=== PATIENT | female | born 1990 | race Caucasian/White ===

== ENCOUNTER 2017-02-04 18:24 | Outpatient (CLI) | payer OTHER, MEDICAID ==
[2017-02-04 19:36] LABS: APPEARANCE,URINE SLIGHTLY-CLOUDY; BILIRUBIN,URINE NEGATIVE (NEGATIVE); GLUCOSE, URINE NEGATIVE (NEGATIVE); KETONES,URINE NEGATIVE (NEGATIVE); LEUKOCYTE ESTERASE,URINE SMALL (NEGATIVE); NITRITE,URINE NEGATIVE (NEGATIVE); PROTEIN,URINE NEGATIVE (NEGATIVE); URINE SPECIFIC GRAVITY 1.028
[2017-02-04 19:55] LABS: URINE BARBITURATES SCREEN NEGATIVE; URINE METHADONE SCREEN NEGATIVE; URINE OPIATES LOW NEGATIVE; URINE PHENCYCLIDINE SCREEN NEGATIVE
--- NOTE | 2017-02-04 20:01 | L&D Flow Sheet ---
LD Flowsheet Datetime Report Generated by CPN: 02/04/2017 20:00 Datetime: 02/04/2017 19:49 Communication Communication Comments: Pt. denies any constipation issues (Kathie Abimael, RN) Datetime: 02/04/2017 19:45 Communication Communication Comments: Dr. Nghia called and notified of pt. arrival, hx, complaint, urine results, fht, and toco tracing. New orders received to have pt. PO hydrate and watch pt. for awhile longer at this time. (Kathie Abimael, RN) Datetime: 02/04/2017 19:36 Monitor Interventions for UA: Witmer Adjusted (Kathie Abimael, RN) Contraction Comments: pt. denies feeling ctn's (Kathie Abimael, RN) Datetime: 02/04/2017 19:33 Vital Signs NBP Sys/Barbara/Mean (mmHg): 112 (QS system process) : 69 (QS system process) : 85 (QS system process) Pulse: 75 (QS system process) LaborFlag: Labor (QS system process) Datetime: 02/04/2017 19:31 Communication Communication Comments: RN at bedside at bedside adjuting u/s pt reports constant lower abd pain since 1400 rates pain 3/. She states that she was at work and went home early d/t pain (Kathie Abimael, RN) Datetime: 02/04/2017 19:30 Uterine Activity Monitor Mode: External (Kathie Abimael, RN) Frequency (min): one (Kathie Abimael, RN) Quality: Mild (Kathie Abimael, RN) Duration (sec): 50 (Kathie Abimael, RN) Duration Criteria: Less than Two 120 Second Contractions (Kathie Abimael, RN) Pattern: Normal: <= 5 Contractions in 10 Minutes (Kathie Abimael, RN) Resting Tone (Palpate): Relaxed (Kathie Abimael, RN) Contraction Comments: irrtitability noted, pt. denies feeling ctn's (Kathie Abimael, RN) Assessment A Monitor Mode: External US (Kathie Abimael, RN) FHR Baseline Rate : 125 (Kathie Abimael, RN) Variability: Moderate 6-25 bpm (Kathie Abimael, RN) Accelerations: 15X15 (Kathie Abimael, RN) Decelerations: None (Kathie Abimael, RN) Datetime: 02/04/2017 19:29 Pain Pain Scale: 3 (Vee Bernadine, RN) Pain Presence: Intermittent (Vee Bernadine, RN) Pain Type: Contraction (Vee Bernadine, RN) Pain Location: Abdomen (Vee Bernadine, RN) Pain Goal: 1 (Vee Bernadine, RN) Pain Coping: Talking Through Contractions (Vee Bernadine, RN) Vaginal Exam Membrane Status: Intact (Vee Bernadine, RN) Vaginal Bleeding: None (Vee Bernadine, RN) Maternal Assessment Level of Consciousness: Fully Conscious (Vee Bernadine, RN) DTR's/Clonus: DTRs 1+; No Clonus (Vee Bernadine, RN) Headache: Generalized (Vee Bernadine, RN) Breath Sounds, Left: Clear and Equal (Vee Bernadine, RN) Breath Sounds, Right: Clear and Equal (Vee Bernadine, RN) Nausea/Vomiting: Denies (Vee Bernadine, RN) RUQ Epigastric Pain: Denies (Vee Bernadine, RN) LaborFlag: Labor (QS system process) Datetime: 02/04/2017 19:28 Communication Communication Comments: eport received from H. Bernadine, RN adn care assumed at this time (Kathie Abimael, RN) Datetime: 02/04/2017 19:03 Vital Signs NBP Sys/Barbara/Mean (mmHg): 105 (QS system process) : 53 (QS system process) : 74 (QS system process) Pulse: 75 (QS system process) LaborFlag: Labor (QS system process) Datetime: 01/22/2017 18:27 LaborFlag: Labor (QS system process) Datetime: 01/22/2017 18:11 LaborFlag: Labor (QS system process) Datetime: 01/22/2017 17:58 LaborFlag: Labor (QS system process) Datetime: 01/22/2017 17:41 LaborFlag: Labor (QS system process) Datetime: 01/22/2017 17:26 LaborFlag: Labor (QS system process) Datetime: 01/22/2017 17:22 LaborFlag: Labor (QS system process)
[2017-02-04] MEDS: RINGERS SOLUTION,LACTATED 2,000 ML IV PRN ×2 (20:28→20:49)
[2017-02-04] MEDS ORDERED: CYCLOBENZAPRINE HCL 10 MG TABLET ONE (20:51)
[2017-02-04] MEDS ORDERED: CYCLOBENZAPRINE HCL 10 MG TABLET PO ONE (21:00)
[2017-02-04] MEDS ORDERED: PROCHLORPERAZINE EDISYLATE INJ 10 MG/2 ML VIAL IV ONE (22:16)
[2017-02-04] MEDS ORDERED: PROMETHAZINE HCL 25 MG TABLET ONE (22:29)
[2017-02-04] MEDS ORDERED: PROMETHAZINE HCL 25 MG TABLET PO ONE (22:45)
--- NOTE | 2017-02-04 22:52 | Non Stress Test Report ---
Non Stress Test Datetime Report Generated by CPN: 02/04/2017 22:52 DEMOGRAPHIC EGA NST: 33.6 INDICATION Indication for Study: Other Indication for Study (NST) Other: LC URINE RESULTS Urine Protein, NST: Negative Urine Ketones - NST: Negative Urine Glucose - NST: Negative Urine Blood - NST: Negative MONITORING Monitor Explained: Monitor Explained; Test Explained; Patient Verbalized Understanding Time on Monitor: 02/04/2017 18:55 Time off Monitor: 02/04/2017 22:14 NST Duration: 199 NST INTERVENTIONS NST Interventions: PO Hydration Physician Notified NST: Dr. Lane BABY A: [id number] BABY A Movement : Present Contraction Frequency : RARE FHR Baseline : 125 Accelerations : 15X15 Decelerations : None Variability : Moderate 6-25bpm NST Review: Meets Criteria for Reactive NST NST Review and Verified By : Hyacinth Peters RN NSRomeo Results: Reactive NST REPORT Report Trigger: Send Report
== END 2017-02-04 23:12 | disposition home or self-care (01) ==
LOC: LC 18:24
PROVIDERS: ATTEND Specialist
PROC: 4A1HXCZ Monitoring of Products of Conception, Cardiac Rate, External Approach (ICD-10-PCS; principal; 2017-02-04)
DX: Z34.93 Encounter for supervision of normal pregnancy, unspecified, third trimester (principal); Z36 Encounter for antenatal screening of mother; Z3A.33 33 weeks gestation of pregnancy
CPT/HCPCS: 59025; 81001; 80307; J0780

== ENCOUNTER 2017-02-20 10:47 | Outpatient (CLI) | payer OTHER, MEDICAID ==
[2017-02-20 11:28] LABS: APPEARANCE,URINE CLEAR; BILIRUBIN,URINE NEGATIVE (NEGATIVE); GLUCOSE, URINE NEGATIVE (NEGATIVE); KETONES,URINE NEGATIVE (NEGATIVE); LEUKOCYTE ESTERASE,URINE TRACE (NEGATIVE); NITRITE,URINE NEGATIVE (NEGATIVE); PROTEIN,URINE NEGATIVE (NEGATIVE); URINE SPECIFIC GRAVITY 1.011; UROBILINOGEN,URINE NEGATIVE mg/dL (<2.0)
[2017-02-20 11:28] LABS: AMNISURE (ROM) NEGATIVE (NEGATIVE)
[2017-02-20 11:50] LABS: URINE BARBITURATES SCREEN NEGATIVE; URINE METHADONE SCREEN NEGATIVE; URINE OPIATES LOW NEGATIVE; URINE PHENCYCLIDINE SCREEN NEGATIVE
--- NOTE | 2017-02-20 12:20 | Non Stress Test Report ---
Non Stress Test Datetime Report Generated by CPN: 02/20/2017 12:20 DEMOGRAPHIC EGA NST: 36.1 INDICATION Indication for Study: Ordered by Provider Indication for Study (NST) Other: lc for ?srom VITAL SIGNS Temperature - NST: 98.4 Pulse - NST: 81 RESP - NST: 16 NBPSYS NST: 118 NBPDIA NST: 65 MONITORING Monitor Explained: Monitor Explained; Test Explained; Patient Verbalized Understanding Time on Monitor: 02/20/2017 11:01 Time off Monitor: 02/20/2017 12:05 NST Duration: 64 NST INTERVENTIONS NST Interventions: PO Hydration; Reposition Patient BABY A: [id number] BABY A Movement : Present Contraction Frequency : occassional FHR Baseline : 125 Accelerations : 15X15 Decelerations : None Variability : Moderate 6-25bpm NST Review: Meets Criteria for Reactive NST NST Review and Verified By : Petar Geiger RNC NST Results: Reactive NST REPORT Report Trigger: Send Report
--- NOTE | 2017-02-20 15:40 | L&D Discharge Summary ---
OB Discharge Summary Datetime Report Generated by CPN: 02/20/2017 15:40 DISCHARGE DIAGNOSIS Diagnosis/Symptoms: Other Diagnoses/Symptoms Other: rule out rupturre membranes Treatment/Procedures Other: amnisure Gestation: 36.0 Number of Babies in Womb: 1 Parity: 2 DIET/ACTIVITY/RESTRICTIONS Diet: Regular Activity: Normal Activity TEACHING/INSTRUCTIONS/REFERRALS Instructions Given To: patient Instructions Understood: Patient Verbalized Understanding; Support Person Verbalized Understanding Referrals: None Educational Materials- Other: kick counts DISCHARGE INFORMATION Discharged AMA: No Discharge Date/Time: 02/20/2017 12:15 Discharged To: Home Discharge Provider Name: pj Accompanied By: Discharge Method: Ambulatory Condition: Stable FOLLOW UP INFORMATION Follow Up With: [facility] Follow Up On: As Scheduled Follow Up Phone Number: [facility] - Comments: Pt. D/C to home via wheelchair and in stable condition. Pt. states that her pain is manageable and she is feeling better. Pt. instructed to keep next appt. in office. Pt. denies any questions or concerns prior to d/c. All pt. belongings were taken with pt. at this time. Pt. off unit and care relinquished at this time
--- NOTE | 2017-02-21 22:46 | L&D Current Admission ---
Current Admit Datetime Report Generated by CPN: 02/21/2017 22:45 ADMISSION INFORMATION Chief Complaint: Contractions; Back Pain (02/04/2017 19:29:Vee Colindres RN) Chief Complaint: Pt complaining of abdominal tenderness and sharp stabbing pains, as well as dizziness and muffled hearing. Reports vomiting since evening of 01/21/17. (01/22/2017 17:22:Fide Viera RN)
--- NOTE | 2017-02-21 22:46 | L&D Discharge Summary ---
OB Discharge Summary Datetime Report Generated by CPN: 02/21/2017 22:45 DISCHARGE DIAGNOSIS Diagnosis/Symptoms: Other Diagnoses/Symptoms Other: rule out rupturre membranes Treatment/Procedures Other: amnisure Gestation: 36.1 Number of Babies in Womb: 1 Parity: 2 DIET/ACTIVITY/RESTRICTIONS Diet: Regular Activity: Normal Activity TEACHING/INSTRUCTIONS/REFERRALS Instructions Given To: patient Instructions Understood: Patient Verbalized Understanding; Support Person Verbalized Understanding Referrals: None Educational Materials- Other: kick counts DISCHARGE INFORMATION Discharged AMA: No Discharge Date/Time: 02/20/2017 12:15 Discharged To: Home Discharge Provider Name: pj Accompanied By: Discharge Method: Ambulatory Condition: Stable FOLLOW UP INFORMATION Follow Up With: [facility] Follow Up On: As Scheduled Follow Up Phone Number: [facility] - Comments: Pt. D/C to home via wheelchair and in stable condition. Pt. states that her pain is manageable and she is feeling better. Pt. instructed to keep next appt. in office. Pt. denies any questions or concerns prior to d/c. All pt. belongings were taken with pt. at this time. Pt. off unit and care relinquished at this time
--- NOTE | 2017-02-21 22:46 | Antepartum Discharge Summary ---
Antepartum DC Datetime Report Generated by CPN: 02/21/2017 22:45 DIET/ACTIVITY/RESTRICTIONS Diet: Regular (02/20/2017 12:15:Mercedez Bellavance, RNC) Activity: Normal Activity (02/20/2017 12:15:Mercedez Bellavance, RNC) TEACHING/INSTRUCTIONS/REFERRALS Instructions Given To: patient (02/20/2017 12:15:Mercedez Bellavance, RNC) Instructions Understood: Patient Verbalized Understanding; Support Person Verbalized Understanding (02/20/2017 12:15:Mercedez Bellavance, RNC) Referrals: None (02/20/2017 12:15:Mercedez Bellavance, RNC) Educational Materials- Other: kick counts (02/20/2017 12:15:Mercedez Bellavance, RNC) DISCHARGE INFORMATION Discharged AMA: No (02/20/2017 12:15:Mercedez Bellavance, RNC) Discharge Date/Time: 02/20/2017 12:15 (02/20/2017 12:15:Mercedez Bellavance, RNC) Discharged To: Home (02/20/2017 12:15:Mercedez Bellavance, RNC) Discharge Provider Name: neraulen (02/20/2017 12:15:Mercedez Bellavance, RNC) Accompanied By: (02/20/2017 12:15:Mercedez Bellavance, RNC) Discharge Method: Ambulatory (02/20/2017 12:15:Mercedez Bellavance, RNC) Condition: Stable (02/20/2017 12:15:Mercedez Bellavance, RNC) FOLLOW UP INFORMATION Follow Up With: [facility] (02/20/2017 12:15:LUCIA De La Fuente) Follow Up On: As Scheduled (02/20/2017 12:15:LUCIA De La Fuente) Follow Up Phone Number: [facility] - (02/20/2017 12:15:LUCIA De La Fuente)
--- NOTE | 2017-02-21 22:46 | L&D General Admission ---
General Admit Datetime Report Generated by CPN: 02/21/2017 22:45 INFORMATION Patient Age: 24 (12/28/2012 12:17:QS system process) EDC: 03/19/2017 00:00 (01/22/2017 17:23:Fide Viera RN) : 3 (01/22/2017 17:23:Fide Viera RN) Para: 2 (01/22/2017 17:23:Fide Viera RN) Term: 2 (01/22/2017 17:23:Fide Viera RN) : 0 (01/22/2017 17:23:Fide Viera RN) Spontaneous Abortions: 0 (01/22/2017 17:23:Fide Viera RN) Induced Abortions: 0 (01/22/2017 17:23:Fide Viera RN) Livin (01/22/2017 17:23:Fide Viera RN) Cesareans: 0 (01/22/2017 17:23:Fide Viera RN) VBACs: 0 (01/22/2017 17:23:Fide RICKY Viera) Ectopic: 0 (01/22/2017 17:23:Fidearnie Viera RN) Baby, Number in Womb: 1 (01/22/2017 17:23:Fidearnie Viera RN) CARE Primary Service Shop 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: [facility] (01/22/2017 17:23:Fide Viera RN) Month of 1st Visit: 08/2016 (01/22/2017 17:23:Fide Viera RN) Adequate Care: Yes (01/22/2017 17:23:Fide Viera RN) Prepregnancy Weight (lb): 134 (01/22/2017 17:23:Fide Viera RN) Prepregnancy Weight (kg): 60.9 (01/22/2017 17:23:QS system process) Height (in): 64 (02/20/2017 11:00:QS system process) Height (in): 64 (01/22/2017 17:38:QS system process) ALLERGIES Medication Allergy: Yes (01/22/2017 17:23:Fide Viera RN) Medication Allergies: amoxicillin trihydrate (01/22/2017); Sulfa (Sulfonamide Antibiotics) (01/22/2017); Potassium Clavulanate * (01/22/2017) (01/22/2017 17:38:QS system process) Medication Allergies: amoxicillin trihydrate (12/05/2014); Sulfa (Sulfonamide Antibiotics) (12/05/2014); Potassium Clavulanate * (12/05/2014) (01/22/2017 16:56:QS system process) Medication Allergies: Amoxicillin Trihydrate (12/05/2014); Sulfa (Sulfonamide Antibiotics) (12/05/2014); Potassium Clavulanate (12/05/2014) (12/28/2014 12:17:QS system process) Latex Allergy: No Latex Allergies (01/22/2017 17:23:Fide Viera RN) Food Allergies: N/A (01/22/2017 17:23:Fide Viera RN) Environmental Allergies: N/A (01/22/2017 17:23:Fide Viera RN) COMMUNICATION Primary Language: Andorran (01/22/2017 17:23:Fide Viera RN) Medical Tx Preferred Language: Andorran (01/22/2017 17:23:Fide Viera RN) Communication Barrier(s): None (01/22/2017 17:23:Fide Viera RN) DEMOGRAPHICS Address: [address] [place] [id number] (01/22/2017 16:56:QS system process) Address: [address] [place] [id number] (12/28/2014 12:17:QS system process) Zipcode: [id number] (01/22/2017 16:56:QS system process) Zipcode: [phone] (12/28/2014 12:17:QS system process) Home (12/28/2014 12:17:QS system process) Work (01/22/2017 16:56:QS system process) SSN: [id number] (12/28/2014 12:17:QS system process) Next of Kin Name: KAYLEY AMBRIZ (12/28/2014 12:17:QS system process) Next of Kin (12/28/2014 12:17:QS system process) Next of Kin Relationship: SPO (12/28/2014 12:17:QS system process) Date of : 1990 (12/28/2014 12:17:QS system process) Marital Status: (12/28/2014 12:17:QS system process) Sex: Female (12/28/2014 12:17:QS system process) Race: (12/28/2014 12:17:QS system process) Ethnicity: Non- or (12/28/2014 12:17:QS system process) Synagogue: Hinduism (12/28/2014 12:17:QS system process) DRUG AND ALCOHOL USE Alcohol: No (01/22/2017 17:23:Fide Vitrano, RN) Cigarettes: Never Smoker. 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: [facility] (01/22/2017 17:23:Fide Viera RN) Feeding Preference: Breast (01/22/2017 17:23:Fide Viera RN) Benefit of Breast Feed Discussed: Yes (01/22/2017 17:23:Fide Viera RN) Circumcision: N/A (01/22/2017 17:23:Fide Viera RN) Classes Attended: No (01/22/2017 17:23:Fide Viera RN) Tubal Ligation: No (01/22/2017 17:23:Fide Viera RN) Tubal Authorization Signed: N/A (01/22/2017 17:23:Fide Viera RN) Consent: N/A (01/22/2017 17:23:Fide Viera RN) Consent Signed: N/A (01/22/2017 17:23:Fide Viera RN) Pain Management Plans: Epidural (01/22/2017 17:23:Fide Viera RN) Plans for Labor and Delivery: None (01/22/2017 17:23:Fide Viear RN) Support Person: Aiden (01/22/2017 17:23:Fide Viera RN) Support Person Relationship: (01/22/2017 17:23:Fide Viera RN) Cultural/Spritual Practice: No (01/22/2017 17:23:Fide Viera RN) Spir/Cult Dietary Needs: No (01/22/2017 17:23:Fide Viera RN) LIVING SITUATION/DISCHARGE PLAN Living Arrangements: House (01/22/2017 17:23:Fide Viera RN) Adequate Access to:: Electric; Heat; Refrigeration; Plumbing/Running water; Phone; Transportation (01/22/2017 17:23:Fide Viera RN) WIC Program: No (01/22/2017 17:23:Fide Viera RN) Discharge Architectural Renderer Person: (01/22/2017 17:23:Fide Viera RN) Person to Help after Discharge: (01/22/2017 17:23:Fide Viera RN) Currently Using Commun Resources: Yes (01/22/2017 17:23:Fide Viera RN) Specify Current Resource Used: Medicaid (01/22/2017 17:23:Fide Viera RN) Car Seat for Discharge: Yes (01/22/2017 17:23:Fide Viera RN) Adoption Requested: No (01/22/2017 17:23:Fide Viera RN) Pt Contact w/infant Post : N/A (01/22/2017 17:23:Fide Viera RN) LABS Blood Type: O Positive (01/22/2017 17:23:Fide Viera RN) Antibody Screen: Negative (01/22/2017 17:23:Fide Viera RN) Rho(G) this : Not Applicable (01/22/2017 17:23:Fide Viera RN) Hemoglobin: 11.1 L (01/22/2017 18:10:QS system process) Hemoglobin: 12.1 (08/28/2016 12:21:QS system process) Hemoglobin: 12.9 (07/12/2016 17:20:QS system process) Hemoglobin: 13.1 (07/11/2016 14:50:QS system process) Hematocrit: 32.6 L (01/22/2017 18:10:QS system process) Hematocrit: 34.9 L (08/28/2016 12:21:QS system process) Hematocrit: 37.7 (07/12/2016 17:20:QS system process) Hematocrit: 38.5 (07/11/2016 14:50:QS system process) MCV: 91 (01/22/2017 18:10:QS system process) MCV: 86 (08/28/2016 12:21:QS system process) MCV: 86 (07/12/2016 17:20:QS system process) MCV: 86 (07/11/2016 14:50:QS system process) RPR/VDRL: Nonreactive (01/22/2017 17:23:Fide Viera RN) HIV Exposure Test: Negative (01/22/2017 17:23:Fide Viera RN) Hepatitis B: Negative (01/22/2017 17:23:Fide Viera RN) Rubella: Immune (01/22/2017 17:23:Fide Viera RN) HgB A1c: 5.0 (07/11/2016 14:50:QS system process) OB/PREVIOUS HISTORY History of Previous : No (01/22/2017 17:23:Fide Viera RN) History of Gestational Diabetes: No (01/22/2017 17:23:Fide Viera RN) History of PIH: No (01/22/2017 17:23:Fide Viera RN) History of Incompetent Cervix: No (01/22/2017 17:23:Fide Viera RN) History of Placenta Previa/Abrup: No (01/22/2017 17:23:Fide Viera RN) History of Macrosomia: No (01/22/2017 17:23:Fide Viera RN) History of IUGR: No (01/22/2017 17:23:Fide Viera RN) History of Hemorrhage: No (01/22/2017 17:23:Fide Viera RN) History of Loss/Stillborn: No (01/22/2017 17:23:Fide Viera RN) History of : No (01/22/2017 17:23:Fide Viera RN) History of D (Rh) Sensitization: No (01/22/2017 17:23:Fide Viera RN) History Recurrent Loss/Stillborn: No (01/22/2017 17:23:Fide Viera RN) History Depression/PP Depression: No (01/22/2017 17:23:Fide Viera RN) History of Uterine Anomaly/JOSE: No (01/22/2017 17:23:Fide Viera RN) History of Infertility: No (01/22/2017 17:23:Fide Viera RN) History of ART Treatment: No (01/22/2017 17:23:Fide Viera RN) History of JOSE: No (01/22/2017 17:23:Fide Viera RN) Comments Obstetrical History: G1: 2012 41.2 baby boy, 8 lb 8 oz G2: 2014 40.1 baby boy G3: Current (01/22/2017 17:23:Fide Viera RN) MEDICAL HISTORY Med Hx Diabetes: Yes (01/22/2017 17:23:Fide Viera RN) Med Hx Hypertension: No (01/22/2017 17:23:Fide Viera RN) Med Hx Heart Disease: No (01/22/2017 17:23:Fide Viera RN) Med Hx Autoimmune Disorder: No (01/22/2017 17:23:Fide Viera RN) Med Hx Kidney Disease/UTI: No (01/22/2017 17:23:Fide Viera RN) Med Hx Neurologic/Epilepsy: No (01/22/2017 17:23:Fide Viera RN) Med Hx Psychiatric Disorders: No (01/22/2017 17:23:Fide Viera RN) Med Hx Hepatitis/Liver Disease: No (01/22/2017 17:23:Fide Viera RN) Med Hx Varicosities/Phlebitis: No (01/22/2017 17:23:Fide Viera RN) Med Hx Thyroid Dysfunction: No (01/22/2017 17:23:Fide Viera RN) Med Hx Trauma/Violence: No (01/22/2017 17:23:Fide Viera RN) Med Hx Blood Transfusion: No (01/22/2017 17:23:Fide Viera RN) Med Hx Pulmonary (Asthma,TB): No (01/22/2017 17:23:Fide Viera RN) Med Hx Breast: No (01/22/2017 17:23:Fide Viera RN) Med Hx CAREER SERVICES DIRECTOR Surgery: No (01/22/2017 17:23:Fide Viera RN) Med Hx Hospitalization/Surgery: Yes (01/22/2017 17:23:Fide Viera RN) Med Hx Anesthetic Complications: No (01/22/2017 17:23:Fide Viera RN) Med Hx Abnormal Pap Smear: No (01/22/2017 17:23:Fide Viera RN) Other Medical Diseases: No (01/22/2017 17:23:Fide Viera RN) Med Hx Significant Family Hx: No (01/22/2017 17:23:Fide Viera RN) Details of Med/Surg Hx: Diabetes: Hypoglycemia Surgeries: Bunion removed l foot, borders removed both feet (01/22/2017 17:23:Fide Viera RN) INFECTIOUS HISTORY Inf Hx Gonorrhea: No (01/22/2017 17:23:Fide Viera RN) Inf Hx Chlamydia: No (01/22/2017 17:23:Fide Viera RN) Inf Hx Syphilis: No (01/22/2017 17:23:Fide Viera RN) Inf Hx HIV/AIDS: No (01/22/2017 17:23:Fide Viera RN) Inf Hx Human Papilloma Virus: No (01/22/2017 17:23:Fide Viera RN) Inf Hx Pt/Partner Genital Herpes: No (01/22/2017 17:23:Fide Viera RN) Inf Hx Tuberculosis/Exposure: No (01/22/2017 17:23:Fide Viera RN) Inf Hx Hepatitis B,C: No (01/22/2017 17:23:Fide Viera RN) Inf Hx Rash or Viral Illness: No (01/22/2017 17:23:Fide Vitrano, RN) GENETIC HISTORY Gen Hx Age >=35 at PRADEEP: No (01/22/2017 17:23:Fide Viera RN) Gen Hx Thalassemia: No (01/22/2017 17:23:Fide Viera RN) Gen Hx Congenital Heart Defect: No (01/22/2017 17:23:Fide Viera RN) Gen Hx Neural Tube Defect: No (01/22/2017 17:23:Fide Viera RN) Gen Hx Down's Syndrome: No (01/22/2017 17:23:Fide Viera RN) Gen Hx Ralph-Sachs: No (01/22/2017 17:23:Fide Viera RN) Gen Hx Brenda: No (01/22/2017 17:23:Fide Viera RN) Gen Hx Familial Dysautonomia: No (01/22/2017 17:23:Fide Viera RN) Gen Hx Sickle Cell Disease/Trait: No (01/22/2017 17:23:Fide Viera RN) Gen Hx Hemophilia/Blood Disorder: No (01/22/2017 17:23:Fide Viera RN) Gen Hx Muscular Dystrophy: No (01/22/2017 17:23:Fide Viera RN) Gen Hx Cystic Fibrosis: No (01/22/2017 17:23:Fide Viera RN) Gen Hx Huntingtons Chorea: No (01/22/2017 17:23:Fide Viera RN) Gen Hx Mental Retardation/Autism: No (01/22/2017 17:23:Fide Viera RN) Gen Hx Tested for Fragile X: No (01/22/2017 17:23:Fide Viera RN) Gen Hx Other Inher/Chromosomal: No (01/22/2017 17:23:Fide Viera RN) Gen Hx Maternal Metabolic DO: No (01/22/2017 17:23:Fide Viera RN) Gen Hx Pt Father or FOB Defect: No (01/22/2017 17:23:Fide Viera RN) Gen Hx Other Genetic History: No (01/22/2017 17:23:Fide Viera RN) Gen Hx Drugs/Meds since LMP: No (01/22/2017 17:23:Fide Viera RN)
--- NOTE | 2017-02-22 04:46 | Antepartum Discharge Summary ---
Antepartum DC Datetime Report Generated by CPN: 02/22/2017 04:45 DIET/ACTIVITY/RESTRICTIONS Diet: Regular (02/20/2017 12:15:Mercedez Bellavance, RNC) Activity: Normal Activity (02/20/2017 12:15:Mercedez Bellavance, RNC) TEACHING/INSTRUCTIONS/REFERRALS Instructions Given To: patient (02/20/2017 12:15:Mercedez Bellavance, RNC) Instructions Understood: Patient Verbalized Understanding; Support Person Verbalized Understanding (02/20/2017 12:15:Mercedez Bellavance, RNC) Referrals: None (02/20/2017 12:15:Mercedez Bellavance, RNC) Educational Materials- Other: kick counts (02/20/2017 12:15:Mercedez Bellavance, RNC) DISCHARGE INFORMATION Discharged AMA: No (02/20/2017 12:15:Mercedez Bellavance, RNC) Discharge Date/Time: 02/20/2017 12:15 (02/20/2017 12:15:Mercedez Bellavance, RNC) Discharged To: Home (02/20/2017 12:15:Mercedez Bellavance, RNC) Discharge Provider Name: neraulen (02/20/2017 12:15:Mercedez Bellavance, RNC) Accompanied By: (02/20/2017 12:15:Mercedez Bellavance, RNC) Discharge Method: Ambulatory (02/20/2017 12:15:Mercedez Bellavance, RNC) Condition: Stable (02/20/2017 12:15:Mercedez Bellavance, RNC) FOLLOW UP INFORMATION Follow Up With: [facility] (02/20/2017 12:15:LUCIA De La Fuente) Follow Up On: As Scheduled (02/20/2017 12:15:LUCIA De La Fuente) Follow Up Phone Number: [facility] - (02/20/2017 12:15:LUCIA De La Fuente)
--- NOTE | 2017-02-22 04:46 | L&D Current Admission ---
Current Admit Datetime Report Generated by CPN: 02/22/2017 04:45 ADMISSION INFORMATION Chief Complaint: Contractions; Back Pain (02/04/2017 19:29:Vee Colindres RN) Chief Complaint: Pt complaining of abdominal tenderness and sharp stabbing pains, as well as dizziness and muffled hearing. Reports vomiting since evening of 01/21/17. (01/22/2017 17:22:Fide Viera RN)
--- NOTE | 2017-02-22 04:46 | L&D Discharge Summary ---
OB Discharge Summary Datetime Report Generated by CPN: 02/22/2017 04:45 DISCHARGE DIAGNOSIS Diagnosis/Symptoms: Other Diagnoses/Symptoms Other: rule out rupturre membranes Treatment/Procedures Other: amnisure Gestation: 36.1 Number of Babies in Womb: 1 Parity: 2 DIET/ACTIVITY/RESTRICTIONS Diet: Regular Activity: Normal Activity TEACHING/INSTRUCTIONS/REFERRALS Instructions Given To: patient Instructions Understood: Patient Verbalized Understanding; Support Person Verbalized Understanding Referrals: None Educational Materials- Other: kick counts DISCHARGE INFORMATION Discharged AMA: No Discharge Date/Time: 02/20/2017 12:15 Discharged To: Home Discharge Provider Name: pj Accompanied By: Discharge Method: Ambulatory Condition: Stable FOLLOW UP INFORMATION Follow Up With: [facility] Follow Up On: As Scheduled Follow Up Phone Number: [facility] - Comments: Pt. D/C to home via wheelchair and in stable condition. Pt. states that her pain is manageable and she is feeling better. Pt. instructed to keep next appt. in office. Pt. denies any questions or concerns prior to d/c. All pt. belongings were taken with pt. at this time. Pt. off unit and care relinquished at this time
--- NOTE | 2017-02-22 04:46 | L&D Admission Assessment ---
LD ADM ASMT Datetime Report Generated by CPN: 02/22/2017 04:45 PATIENT ASSESSMENT Assessment Type: Triage (02/20/2017 11:19:Cintiadonavan Mccabe, RN) WEIGHT Weight (lb): 161 (02/20/2017 11:00:QS system process) Weight (kg): 73.2 (02/20/2017 11:00:QS system process) Total Wt Gain (lb): 27 (02/20/2017 11:00:QS system process) Wt Gain (kg): 12.1 (02/20/2017 11:00:QS system process) BMI: 27.6 (02/20/2017 11:00:QS system process) PAIN Pain Comments: patient states that she is uncomfortable when baby moves (02/20/2017 11:03:Cintia Eliot, RN) CONTRACTIONS Frequency (min): 2-3 (02/20/2017 12:00:Mercedez Bellavance, RNC) Frequency (min): 0 (02/20/2017 11:03:Cintia Eliot, RN) Duration (sec): 40-50 (02/20/2017 12:00:Mercedez Bellavance, RNC) Quality: Mild (02/20/2017 12:00:Mercedez Bellavance, RNC) Pattern: Normal: <= 5 Contractions in 10 Minutes (02/20/2017 12:00:Mercedez Bellavance, RNC) Resting Tone Rozel: Relaxed (02/20/2017 12:00:Mercedez Bellavance, RNC) Resting Tone Rozel: Relaxed (02/20/2017 11:03:Cintia Mccabe RN) VAGINAL EXAM Dilatation (cm): 0.0 (02/20/2017 12:00:Mercedez Bellavance, RNC) Effacement (%): 0 (02/20/2017 12:00:Mercedez Bellavance, RNC) Station: -2 (02/20/2017 12:00:Mercedez Bellavance, RNC) Membranes Status: Intact (02/20/2017 12:00:Mercedez Bellavance, RNC) NEURO Level of Consciousness: Fully Conscious (02/20/2017 11:19:Cintia Mccabe RN) DTR's/Clonus: DTRs 2+; No Clonus (02/20/2017 11:19:Cintia Mccabe RN) Headache: Denies (02/20/2017 11:19:Cintia Mccabe RN) Dizziness: No (02/20/2017 11:19:Cintia Mccabe RN) Blurred Vision: No (02/20/2017 11:19:Cintia Mccabe RN) Extremity Numbness/Tingling : None (02/20/2017 11:19:Cintia Eliot, RN) Extremity Movement: Full Range of Motion (02/20/2017 11:19:Cintia Eliot, RN) CARDIOVASCULAR Nailbeds: [place] (02/20/2017 11:19:Cintia Eliot, RN) Capillary Refill: Less than 3 Seconds (02/20/2017 11:19:Cintia Eliot, RN) Facial Edema: None (02/20/2017 11:19:Cintia Eliot, RN) Froylan's Sign Left Leg: Negative (02/20/2017 11:19:Cintia Eliot, RN) Froylan's Sign Right Leg: Negative (02/20/2017 11:19:Cintia Eliot, RN) RESPIRATORY Respiratory Effort: Unlabored; Regular Rhythm; Equal Expansion (02/20/2017 11:19:Cintia Eliot, RN) Breath Sounds, Left: Clear and Equal (02/20/2017 11:19:Cintia Eliot, RN) Breath Sounds, Right: Clear and Equal (02/20/2017 11:19:Cintia Eliot, RN) Cough Productivity: None (02/20/2017 11:19:Cintia Eliot, RN) GASTROINTESTINAL Nausea/Vomiting: Denies (02/20/2017 11:19:Cintia Eliot, RN) Bowel Sounds: Normoactive; All Quadrants (02/20/2017 11:19:Cintia Eliot, RN) RUQ Epigastric Pain: Denies (02/20/2017 11:19:Cintia Eliot, RN) GENITOURINARY Bladder: Nondistended (02/20/2017 11:19:Cintia Eliot, RN) Frequency of Urination: No (02/20/2017 11:19:Cintia Eliot, RN) Urination Burning: No (02/20/2017 11:19:Cintia Eliot, RN) CVA Tenderness: No (02/20/2017 11:19:Cintia Eliot, RN) Vaginal Discharge Color: N/A (02/20/2017 11:19:Cintia Eliot, RN) INTEGUMENTARY Skin Color: Normal for Race (02/20/2017 11:19:Cintia Mccabe, RICKY) Skin Temperature: Warm (02/20/2017 11:19:Cintia Mccabe, RICKY) Skin Moisture: Dry (02/20/2017 11:19:Cintia Mccabe, RN) GILLIAN SKIN ASSESSMENT Gillian Scale Sensory Perception: No Impairment- Responds to verbal commands. Has no sensory deficit which would limit ability to feel or voice pain or discomfort (02/20/2017 11:19:Cintia Mccabe RN) Gillian Scale Moisture: Rarely Moist- Skin is usually dry. Linen only requires changing at routine intervals (02/20/2017 11:19:Cintia Mccabe RN) Gillian Scale Activity: Walks Frequently- Walks outside the room at least twice a day and inside room at least every 2 hours during the day. (02/20/2017 11:19:Cintia Mccabe RN) Gillian Scale Mobility: No Limitations- Makes major and frequent changes in position without assistance (02/20/2017 11:19:Cintia Mccabe RN) Gillian Scale Nutrition: Excellent- Eats most of every meal. Never refuses a meal. Usually eats a total of 4 or more servings of meat and dairy products. Occasionally eats between meals. Does not require supplementation (02/20/2017 11:19:Cintia Mccabe RN) Gillian Scale Friction and Shear: No Apparent Problem- Moves in bed and in chair independently and has sufficient muscle strength to lift up completely during move. Maintains good position in bed or chair at all times (02/20/2017 11:19:Cintia Mccabe RN) Gillian Scale Total: 23 (02/20/2017 11:19:QS system process) Gillian Scale Risk: No Risk of Pressure Ulcer Noted at this Time (02/20/2017 11:19:QS system process) SAFETY Call Webb Within Reach: Yes (02/20/2017 11:19:Cintia Mccabe RN) Side Rails Up: Yes (02/20/2017 11:19:Cintia Mccabe RN) Bed Wheels Locked: Yes (02/20/2017 11:19:Cintia Mccabe RN) Arm Bands Present: Yes (02/20/2017 11:19:Cintia Mccabe RN) FALL SCREEN Fall Risk History of Falling: (0) No (02/20/2017 11:19:Cintia Mccabe RN) Fall Risk Secondary Diagnosis: (0) No (02/20/2017 11:19:Cintia Mccabe RN) Fall Risk Ambulatory Aid: (0) None/Bedrest/Wheelchair/Nurse Assist (02/20/2017 11:19:Cintia Mccabe RN) Fall Risk IV Therapy: (0) No (02/20/2017 11:19:Cintia Mccabe RN) Fall Risk Gait: (0) Normal/Bedrest/Immobile (02/20/2017 11:19:Cintia Mccabe RN) Fall Risk Mental Status: (0) Oriented to Own Ability (02/20/2017 11:19:Cintia Mccabe RN) Fall Risk Score: 0 (02/20/2017 11:19:QS system process) Fall Risk Score Definition: No Risk: No action required (02/20/2017 11:19:QS system process) BABY A FHR Baseline Rate (bpm) Baby A: 125 (02/20/2017 12:00:LUCIA De La Fuente) FHR Baseline Rate (bpm) Baby A: 125 (02/20/2017 11:03:Cintia Mccabe RN) Variability Baby A: Moderate 6-25 bpm (02/20/2017 12:00:LUCIA De La Fuente) Variability Baby A: Moderate 6-25 bpm (02/20/2017 11:03:Cintia Mccabe RN) Accelerations Baby A: 15X15 (02/20/2017 12:00:LUCIA De La Fuente) Accelerations Baby A: 15X15 (02/20/2017 11:03:Cintia Mccabe RN) Decelerations Baby A: None (02/20/2017 12:00:LUCIA De La Fuente) Decelerations Baby A: None (02/20/2017 11:03:Cintia Mccabe RN)
--- NOTE | 2017-02-22 04:46 | L&D General Admission ---
General Admit Datetime Report Generated by CPN: 02/22/2017 04:45 INFORMATION Patient Age: 24 (12/28/2014 12:17:QS system process) EDC: 03/19/2017 00:00 (01/22/2017 17:23:Fide Viera RN) : 3 (01/22/2017 17:23:Fide Viera RN) Para: 2 (01/22/2017 17:23:Fide Viera RN) Term: 2 (01/22/2017 17:23:Fide Viera RN) : 0 (01/22/2017 17:23:Fide Viera RN) Spontaneous Abortions: 0 (01/22/2017 17:23:Fide Viera RN) Induced Abortions: 0 (01/22/2017 17:23:Fide Viera RN) Livin (01/22/2017 17:23:Fide Viera RN) Cesareans: 0 (01/22/2017 17:23:Fide Viera RN) VBACs: 0 (01/22/2017 17:23:Fide RICKY Viera) Ectopic: 0 (01/22/2017 17:23:Fidearnie Viera RN) Baby, Number in Womb: 1 (01/22/2017 17:23:Fidearnie Viera RN) CARE [facility] Prof[facility] (01/22/2017 17:23:Fide Viera RN) Month of 1st Visit: 08/2016 (01/22/2017 17:23:Fide Viera RN) Adequate Care: Yes (01/22/2017 17:23:Fide Viera RN) Prepregnancy Weight (lb): 134 (01/22/2017 17:23:Fide Viera RN) Prepregnancy Weight (kg): 60.9 (01/22/2017 17:23:QS system process) Height (in): 64 (02/20/2017 11:00:QS system process) Height (in): 64 (01/22/2017 17:38:QS system process) ALLERGIES Medication Allergy: Yes (01/22/2017 17:23:Fide Viera RN) Medication Allergies: amoxicillin trihydrate (01/22/2017); Sulfa (Sulfonamide Antibiotics) (01/22/2017); Potassium Clavulanate * (01/22/2017) (01/22/2017 17:38:QS system process) Medication Allergies: amoxicillin trihydrate (12/05/2014); Sulfa (Sulfonamide Antibiotics) (12/05/2014); Potassium Clavulanate * (12/05/2014) (01/22/2017 16:56:QS system process) Medication Allergies: Amoxicillin Trihydrate (12/05/2014); Sulfa (Sulfonamide Antibiotics) (12/05/2014); Potassium Clavulanate (12/05/2014) (12/28/2014 12:17:QS system process) Latex Allergy: No Latex Allergies (01/22/2017 17:23:Fide Viera RN) Food Allergies: N/A (01/22/2017 17:23:Fide Viera RN) Environmental Allergies: N/A (01/22/2017 17:23:Fide Viera RN) COMMUNICATION Primary Language: Georgian (01/22/2017 17:23:Fide Viera RN) Medical Tx Preferred Language: Georgian (01/22/2017 17:23:Fide Viera RN) Communication Barrier(s): None (01/22/2017 17:23:Fide Viera RN) DEMOGRAPHICS Address: [address] [place] [id number] (01/22/2017 16:56:QS system process) Address: [address] [place] [id number] (12/28/2014 12:17:QS system process) Zipcode: [id number] (01/22/2017 16:56:QS system process) Zipcode: [id number] (12/28/2014 12:17:QS system process) Home (12/28/2014 12:17:QS system process) Work (01/22/2017 16:56:QS system process) SSN: [id number] (12/28/2014 12:17:QS system process) Next of Kin Name: KAYLEY AMBRIZ (12/28/2014 12:17:QS system process) Next of Kin (12/28/2014 12:17:QS system process) Next of Kin Relationship: SPO (12/28/2014 12:17:QS system process) Date of : 1990 (12/28/2014 12:17:QS system process) Marital Status: (12/28/2014 12:17:QS system process) Sex: Female (12/28/2014 12:17:QS system process) Race: (12/28/2014 12:17:QS system process) Ethnicity: Non- or (12/28/2014 12:17:QS system process) Buddhist: Orthodoxy (12/28/2014 12:17:QS system process) DRUG AND ALCOHOL USE Alcohol: No (01/22/2017 17:23:Fide Vitrano, RN) Cigarettes: Never Smoker. [id number] (01/22/2017 17:23:Fide Vitrano, RN) Marijuana: No (01/22/2017 17:23:Fide Vitrano, RN) Cocaine: No (01/22/2017 17:23:Fide Vitrano, RN) Other Illicit Drugs: No (01/22/2017 17:23:Fide Vitrano, RN) VACCINE HISTORY Influenza Vaccine: No (01/22/2017 17:23:Fide Vitrano, RN) Pneumococcal Vaccine: No (01/22/2017 17:23:Fide Vitrano, RN) Tetanus Vaccine: Yes (01/22/2017 17:23:Fide Vitrano, RN) Tdap Vaccine: Yes (01/22/2017 17:23:Fide Vitrano, RN) Hepatitis B Vaccine: Yes (01/22/2017 17:23:Fide Vitrano, RN) Mailing Clerk: [facility] (01/22/2017 17:23:Fide Viera RN) Feeding Preference: Breast (01/22/2017 17:23:Fide Viera RN) Benefit of Breast Feed Discussed: Yes (01/22/2017 17:23:Fide Viera RN) Circumcision: N/A (01/22/2017 17:23:Fide Viera RN) Classes Attended: No (01/22/2017 17:23:Fide Viera RN) Tubal Ligation: No (01/22/2017 17:23:Fide Viera RN) Tubal Authorization Signed: N/A (01/22/2017 17:23:Fide Viera RN) Consent: N/A (01/22/2017 17:23:Fide Viera RN) Consent Signed: N/A (01/22/2017 17:23:Fide Viera RN) Pain Management Plans: Epidural (01/22/2017 17:23:Fide Viera RN) Plans for Labor and Delivery: None (01/22/2017 17:23:Fide Viera RN) Support Person: Aiden (01/22/2017 17:23:Fide Viera RN) Support Person Relationship: (01/22/2017 17:23:Fide Viera RN) Cultural/Spritual Practice: No (01/22/2017 17:23:Fide Viera RN) Spir/Cult Dietary Needs: No (01/22/2017 17:23:Fide Viera RN) LIVING SITUATION/DISCHARGE PLAN Living Arrangements: House (01/22/2017 17:23:Fide Viera RN) Adequate Access to:: Electric; Heat; Refrigeration; Plumbing/Running water; Phone; Transportation (01/22/2017 17:23:Fide Viera RN) WIC Program: No (01/22/2017 17:23:Fide Viera RN) Discharge Manager Financial Planning Person: (01/22/2017 17:23:Fide Viera RN) Person to Help after Discharge: (01/22/2017 17:23:Fide Viera RN) Currently Using Commun Resources: Yes (01/22/2017 17:23:Fide Viera RN) Specify Current Resource Used: Medicaid (01/22/2017 17:23:Fide Viera RN) Car Seat for Discharge: Yes (01/22/2017 17:23:Fide Viera RN) Adoption Requested: No (01/22/2017 17:23:Fide Viera RN) Pt Contact w/infant Post : N/A (01/22/2017 17:23:Fide Viera RN) LABS Blood Type: O Positive (01/22/2017 17:23:Fide Viera RN) Antibody Screen: Negative (01/22/2017 17:23:Fide Viera RN) Rho(G) this : Not Applicable (01/22/2017 17:23:Fide Viera RN) Hemoglobin: 11.1 L (01/22/2017 18:10:QS system process) Hemoglobin: 12.1 (08/28/2016 12:21:QS system process) Hemoglobin: 12.9 (07/12/2016 17:20:QS system process) Hemoglobin: 13.1 (07/11/2016 14:50:QS system process) Hematocrit: 32.6 L (01/22/2017 18:10:QS system process) Hematocrit: 34.9 L (08/28/2016 12:21:QS system process) Hematocrit: 37.7 (07/12/2016 17:20:QS system process) Hematocrit: 38.5 (07/11/2016 14:50:QS system process) MCV: 91 (01/22/2017 18:10:QS system process) MCV: 86 (08/28/2016 12:21:QS system process) MCV: 86 (07/12/2016 17:20:QS system process) MCV: 86 (07/11/2016 14:50:QS system process) RPR/VDRL: Nonreactive (01/22/2017 17:23:Fide Viera RN) HIV Exposure Test: Negative (01/22/2017 17:23:Fide Viera RN) Hepatitis B: Negative (01/22/2017 17:23:Fide Viera RN) Rubella: Immune (01/22/2017 17:23:Fide Viera RN) HgB A1c: 5.0 (07/11/2016 14:50:QS system process) OB/PREVIOUS HISTORY History of Previous : No (01/22/2017 17:23:Fide Viera RN) History of Gestational Diabetes: No (01/22/2017 17:23:Fide Viera RN) History of PIH: No (01/22/2017 17:23:Fide Viera RN) History of Incompetent Cervix: No (01/22/2017 17:23:Fide Viera RN) History of Placenta Previa/Abrup: No (01/22/2017 17:23:Fide Viera RN) History of Macrosomia: No (01/22/2017 17:23:Fide Viera RN) History of IUGR: No (01/22/2017 17:23:Fide Viera RN) History of Hemorrhage: No (01/22/2017 17:23:Fide Viera RN) History of Loss/Stillborn: No (01/22/2017 17:23:Fide Viera RN) History of : No (01/22/2017 17:23:Fide Viera RN) History of D (Rh) Sensitization: No (01/22/2017 17:23:Fide Viera RN) History Recurrent Loss/Stillborn: No (01/22/2017 17:23:Fide Viera RN) History Depression/PP Depression: No (01/22/2017 17:23:Fide Viera RN) History of Uterine Anomaly/JOSE: No (01/22/2017 17:23:Fide Viera RN) History of Infertility: No (01/22/2017 17:23:Fide Viera RN) History of ART Treatment: No (01/22/2017 17:23:Fide Viera RN) History of JOSE: No (01/22/2017 17:23:Fide Viera RN) Comments Obstetrical History: G1: 2012 41.2 baby boy, 8 lb 8 oz G2: 2014 40.1 baby boy G3: Current (01/22/2017 17:23:Fide Viera RN) MEDICAL HISTORY Med Hx Diabetes: Yes (01/22/2017 17:23:Fide Viera RN) Med Hx Hypertension: No (01/22/2017 17:23:Fide Viera RN) Med Hx Heart Disease: No (01/22/2017 17:23:Fide Viera RN) Med Hx Autoimmune Disorder: No (01/22/2017 17:23:Fide Viera RN) Med Hx Kidney Disease/UTI: No (01/22/2017 17:23:Fide Viera RN) Med Hx Neurologic/Epilepsy: No (01/22/2017 17:23:Fide Viera RN) Med Hx Psychiatric Disorders: No (01/22/2017 17:23:Fide Viera RN) Med Hx Hepatitis/Liver Disease: No (01/22/2017 17:23:Fide Viera RN) Med Hx Varicosities/Phlebitis: No (01/22/2017 17:23:Fide Viera RN) Med Hx Thyroid Dysfunction: No (01/22/2017 17:23:Fide Viera RN) Med Hx Trauma/Violence: No (01/22/2017 17:23:Fide Viera RN) Med Hx Blood Transfusion: No (01/22/2017 17:23:Fide Viera RN) Med Hx Pulmonary (Asthma,TB): No (01/22/2017 17:23:Fide Viera RN) Med Hx Breast: No (01/22/2017 17:23:Fide Viera RN) Med Hx 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: No (01/22/2017 17:23:Fide Viera RN) Med Hx Hospitalization/Surgery: Yes (01/22/2017 17:23:Fide Viera RN) Med Hx Anesthetic Complications: No (01/22/2017 17:23:Fide Viera RN) Med Hx Abnormal Pap Smear: No (01/22/2017 17:23:Fide Viera RN) Other Medical Diseases: No (01/22/2017 17:23:Fide Viera RN) Med Hx Significant Family Hx: No (01/22/2017 17:23:Fide Viera RN) Details of Med/Surg Hx: Diabetes: Hypoglycemia Surgeries: Bunion removed l foot, borders removed both feet (01/22/2017 17:23:Fide Viera RN) INFECTIOUS HISTORY Inf Hx Gonorrhea: No (01/22/2017 17:23:Fide Viera RN) Inf Hx Chlamydia: No (01/22/2017 17:23:Fide Viera RN) Inf Hx Syphilis: No (01/22/2017 17:23:Fide Viera RN) Inf Hx HIV/AIDS: No (01/22/2017 17:23:Fide Viera RN) Inf Hx Human Papilloma Virus: No (01/22/2017 17:23:Fide Viera RN) Inf Hx Pt/Partner Genital Herpes: No (01/22/2017 17:23:Fide Viera RN) Inf Hx Tuberculosis/Exposure: No (01/22/2017 17:23:Fide Viera RN) Inf Hx Hepatitis B,C: No (01/22/2017 17:23:Fide Viera RN) Inf Hx Rash or Viral Illness: No (01/22/2017 17:23:Fide Vitrano, RN) GENETIC HISTORY Gen Hx Age >=35 at PRADEEP: No (01/22/2017 17:23:Fide Viera RN) Gen Hx Thalassemia: No (01/22/2017 17:23:Fide Viera RN) Gen Hx Congenital Heart Defect: No (01/22/2017 17:23:Fide Viera RN) Gen Hx Neural Tube Defect: No (01/22/2017 17:23:Fide Viera RN) Gen Hx Down's Syndrome: No (01/22/2017 17:23:Fide Viera RN) Gen Hx Ralph-Sachs: No (01/22/2017 17:23:Fide Viera RN) Gen Hx Brenda: No (01/22/2017 17:23:Fide Viera RN) Gen Hx Familial Dysautonomia: No (01/22/2017 17:23:Fide Viera RN) Gen Hx Sickle Cell Disease/Trait: No (01/22/2017 17:23:Fide Viera RN) Gen Hx Hemophilia/Blood Disorder: No (01/22/2017 17:23:Fide Viera RN) Gen Hx Muscular Dystrophy: No (01/22/2017 17:23:Fide Viera RN) Gen Hx Cystic Fibrosis: No (01/22/2017 17:23:Fide Viera RN) Gen Hx Huntingtons Chorea: No (01/22/2017 17:23:Fide Viera RN) Gen Hx Mental Retardation/Autism: No (01/22/2017 17:23:Fide Viera RN) Gen Hx Tested for Fragile X: No (01/22/2017 17:23:Fide Viera RN) Gen Hx Other Inher/Chromosomal: No (01/22/2017 17:23:Fide Viera RN) Gen Hx Maternal Metabolic DO: No (01/22/2017 17:23:Fide Viera RN) Gen Hx Pt Father or FOB Defect: No (01/22/2017 17:23:Fide Viera RN) Gen Hx Other Genetic History: No (01/22/2017 17:23:Fide Viera RN) Gen Hx Drugs/Meds since LMP: No (01/22/2017 17:23:Fide Viera RN)
--- NOTE | 2017-02-22 10:45 | L&D Current Admission ---
Current Admit Datetime Report Generated by CPN: 02/22/2017 10:45 ADMISSION INFORMATION Chief Complaint: Contractions; Back Pain (02/04/2017 19:29:Vee Colindres RN) Chief Complaint: Pt complaining of abdominal tenderness and sharp stabbing pains, as well as dizziness and muffled hearing. Reports vomiting since evening of 01/21/17. (01/22/2017 17:22:Fide Viera RN)
--- NOTE | 2017-02-22 10:45 | L&D Discharge Summary ---
OB Discharge Summary Datetime Report Generated by CPN: 02/22/2017 10:45 DISCHARGE DIAGNOSIS Diagnosis/Symptoms: Other Diagnoses/Symptoms Other: rule out rupturre membranes Treatment/Procedures Other: amnisure Gestation: 36.1 Number of Babies in Womb: 1 Parity: 2 DIET/ACTIVITY/RESTRICTIONS Diet: Regular Activity: Normal Activity TEACHING/INSTRUCTIONS/REFERRALS Instructions Given To: patient Instructions Understood: Patient Verbalized Understanding; Support Person Verbalized Understanding Referrals: None Educational Materials- Other: kick counts DISCHARGE INFORMATION Discharged AMA: No Discharge Date/Time: 02/20/2017 12:15 Discharged To: Home Discharge Provider Name: pj Accompanied By: Discharge Method: Ambulatory Condition: Stable FOLLOW UP INFORMATION Follow Up With: [facility] Follow Up On: As Scheduled Follow Up Phone Number: [facility] - Comments: Pt. D/C to home via wheelchair and in stable condition. Pt. states that her pain is manageable and she is feeling better. Pt. instructed to keep next appt. in office. Pt. denies any questions or concerns prior to d/c. All pt. belongings were taken with pt. at this time. Pt. off unit and care relinquished at this time
--- NOTE | 2017-02-22 10:45 | L&D General Admission ---
General Admit Datetime Report Generated by CPN: 02/22/2017 10:45 INFORMATION Patient Age: 24 (12/28/2014 12:17:QS system process) EDC: 03/19/2017 00:00 (01/22/2017 17:23:Fide Viera RN) : 3 (01/22/2017 17:23:Fide Viera RN) Para: 2 (01/22/2017 17:23:Fide Viera RN) Term: 2 (01/22/2017 17:23:Fide Viera RN) : 0 (01/22/2017 17:23:Fide Viera RN) Spontaneous Abortions: 0 (01/22/2017 17:23:Fide Viera RN) Induced Abortions: 0 (01/22/2017 17:23:Fide Viera RN) Livin (01/22/2017 17:23:Fide Viera RN) Cesareans: 0 (01/22/2017 17:23:Fide Viera RN) VBACs: 0 (01/22/2017 17:23:Fide RICKY Viera) Ectopic: 0 (01/22/2017 17:23:Fidearnie Viera RN) Baby, Number in Womb: 1 (01/22/2017 17:23:Fidearnie Viera RN) [facility] 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[facility] (01/22/2017 17:23:Fide Viera RN) Month of 1st Visit: 08/2016 (01/22/2017 17:23:Fide Viera RN) Adequate Care: Yes (01/22/2017 17:23:Fide Viera RN) Prepregnancy Weight (lb): 134 (01/22/2017 17:23:Fide Viera RN) Prepregnancy Weight (kg): 60.9 (01/22/2017 17:23:QS system process) Height (in): 64 (02/20/2017 11:00:QS system process) Height (in): 64 (01/22/2017 17:38:QS system process) ALLERGIES Medication Allergy: Yes (01/22/2017 17:23:Fide Viera RN) Medication Allergies: amoxicillin trihydrate (01/22/2017); Sulfa (Sulfonamide Antibiotics) (01/22/2017); Potassium Clavulanate * (01/22/2017) (01/22/2017 17:38:QS system process) Medication Allergies: amoxicillin trihydrate (12/05/2014); Sulfa (Sulfonamide Antibiotics) (12/05/2014); Potassium Clavulanate * (12/05/2014) (01/22/2017 16:56:QS system process) Medication Allergies: Amoxicillin Trihydrate (12/05/2014); Sulfa (Sulfonamide Antibiotics) (12/05/2014); Potassium Clavulanate (12/05/2014) (12/28/2014 12:17:QS system process) Latex Allergy: No Latex Allergies (01/22/2017 17:23:Fide Viera RN) Food Allergies: N/A (01/22/2017 17:23:Fide Viera RN) Environmental Allergies: N/A (01/22/2017 17:23:Fide Viera RN) COMMUNICATION Primary Language: Northern Irish (01/22/2017 17:23:Fide Viera RN) Medical Tx Preferred Language: Northern Irish (01/22/2017 17:23:Fide Viera RN) Communication Barrier(s): None (01/22/2017 17:23:Fide Viera RN) DEMOGRAPHICS Address: [address] [place] [id number] (01/22/2017 16:56:QS system process) Address: [address] [place] [id number] (12/28/2014 12:17:QS system process) Zipcode: [id number] (01/22/2017 16:56:QS system process) Zipcode: [phone] (12/28/2014 12:17:QS system process) Home (12/28/2014 12:17:QS system process) Work (01/22/2017 16:56:QS system process) SSN: [id number] (12/28/2014 12:17:QS system process) Next of Kin Name: KAYLEY AMBRIZ (12/28/2014 12:17:QS system process) Next of Kin (12/28/2014 12:17:QS system process) Next of Kin Relationship: SPO (12/28/2014 12:17:QS system process) Date of : 1990 (12/28/2014 12:17:QS system process) Marital Status: (12/28/2014 12:17:QS system process) Sex: Female (12/28/2014 12:17:QS system process) Race: (12/28/2014 12:17:QS system process) Ethnicity: Non- or (12/28/2014 12:17:QS system process) Jehovah'S Witness: Hoahaoism (12/28/2014 12:17:QS system process) DRUG AND ALCOHOL USE Alcohol: No (01/22/2017 17:23:Fide Vitrano, RN) Cigarettes: Never Smoker. 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: [facility] (01/22/2017 17:23:Fide Viera RN) Feeding Preference: Breast (01/22/2017 17:23:Fide Viera RN) Benefit of Breast Feed Discussed: Yes (01/22/2017 17:23:Fide Viera RN) Circumcision: N/A (01/22/2017 17:23:Fide Viera RN) Classes Attended: No (01/22/2017 17:23:Fide Viera RN) Tubal Ligation: No (01/22/2017 17:23:Fide Viera RN) Tubal Authorization Signed: N/A (01/22/2017 17:23:Fide Viera RN) Consent: N/A (01/22/2017 17:23:Fide Viera RN) Consent Signed: N/A (01/22/2017 17:23:Fide Viera RN) Pain Management Plans: Epidural (01/22/2017 17:23:Fide Viera RN) Plans for Labor and Delivery: None (01/22/2017 17:23:Fide Viera RN) Support Person: Aiden (01/22/2017 17:23:Fide Viera RN) Support Person Relationship: (01/22/2017 17:23:Fide Viera RN) Cultural/Spritual Practice: No (01/22/2017 17:23:Fide Viera RN) Spir/Cult Dietary Needs: No (01/22/2017 17:23:Fide Viera RN) LIVING SITUATION/DISCHARGE PLAN Living Arrangements: House (01/22/2017 17:23:Fide Viera RN) Adequate Access to:: Electric; Heat; Refrigeration; Plumbing/Running water; Phone; Transportation (01/22/2017 17:23:Fide Viera RN) WIC Program: No (01/22/2017 17:23:Fide Viera RN) 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: (01/22/2017 17:23:Fide Viera RN) Person to Help after Discharge: (01/22/2017 17:23:Fide Viera RN) Currently Using Commun Resources: Yes (01/22/2017 17:23:Fide Viera RN) Specify Current Resource Used: Medicaid (01/22/2017 17:23:Fide Viera RN) Car Seat for Discharge: Yes (01/22/2017 17:23:Fide Viera RN) Adoption Requested: No (01/22/2017 17:23:Fide Viera RN) Pt Contact w/infant Post : N/A (01/22/2017 17:23:Fide Viera RN) LABS Blood Type: O Positive (01/22/2017 17:23:Fide Viera RN) Antibody Screen: Negative (01/22/2017 17:23:Fide Viera RN) Rho(G) this : Not Applicable (01/22/2017 17:23:Fide Viera RN) Hemoglobin: 11.1 L (01/22/2017 18:10:QS system process) Hemoglobin: 12.1 (08/28/2016 12:21:QS system process) Hemoglobin: 12.9 (07/12/2016 17:20:QS system process) Hemoglobin: 13.1 (07/11/2016 14:50:QS system process) Hematocrit: 32.6 L (01/22/2017 18:10:QS system process) Hematocrit: 34.9 L (08/28/2016 12:21:QS system process) Hematocrit: 37.7 (07/12/2016 17:20:QS system process) Hematocrit: 38.5 (07/11/2016 14:50:QS system process) MCV: 91 (01/22/2017 18:10:QS system process) MCV: 86 (08/28/2016 12:21:QS system process) MCV: 86 (07/12/2016 17:20:QS system process) MCV: 86 (07/11/2016 14:50:QS system process) RPR/VDRL: Nonreactive (01/22/2017 17:23:Fide Viera RN) HIV Exposure Test: Negative (01/22/2017 17:23:Fide Viera RN) Hepatitis B: Negative (01/22/2017 17:23:Fide Viera RN) Rubella: Immune (01/22/2017 17:23:Fide Viera RN) HgB A1c: 5.0 (07/11/2016 14:50:QS system process) OB/PREVIOUS HISTORY History of Previous : No (01/22/2017 17:23:Fide Viera RN) History of Gestational Diabetes: No (01/22/2017 17:23:Fide Viera RN) History of PIH: No (01/22/2017 17:23:Fide Viera RN) History of Incompetent Cervix: No (01/22/2017 17:23:Fide Viera RN) History of Placenta Previa/Abrup: No (01/22/2017 17:23:Fide Viera RN) History of Macrosomia: No (01/22/2017 17:23:Fide Viera RN) History of IUGR: No (01/22/2017 17:23:Fide Viera RN) History of Hemorrhage: No (01/22/2017 17:23:Fide Viera RN) History of Loss/Stillborn: No (01/22/2017 17:23:Fide Viera RN) History of : No (01/22/2017 17:23:Fide Viera RN) History of D (Rh) Sensitization: No (01/22/2017 17:23:Fide Viera RN) History Recurrent Loss/Stillborn: No (01/22/2017 17:23:Fide Viera RN) History Depression/PP Depression: No (01/22/2017 17:23:Fide Viera RN) History of Uterine Anomaly/JOSE: No (01/22/2017 17:23:Fide Viera RN) History of Infertility: No (01/22/2017 17:23:Fide Viera RN) History of ART Treatment: No (01/22/2017 17:23:Fide Viera RN) History of JOSE: No (01/22/2017 17:23:Fide Viera RN) Comments Obstetrical History: G1: 2012 41.2 baby boy, 8 lb 8 oz G2: 2014 40.1 baby boy G3: Current (01/22/2017 17:23:Fide Viera RN) MEDICAL HISTORY Med Hx Diabetes: Yes (01/22/2017 17:23:Fide Viera RN) Med Hx Hypertension: No (01/22/2017 17:23:Fide Viera RN) Med Hx Heart Disease: No (01/22/2017 17:23:Fide Viera RN) Med Hx Autoimmune Disorder: No (01/22/2017 17:23:Fide Viera RN) Med Hx Kidney Disease/UTI: No (01/22/2017 17:23:Fide Viera RN) Med Hx Neurologic/Epilepsy: No (01/22/2017 17:23:Fide Viera RN) Med Hx Psychiatric Disorders: No (01/22/2017 17:23:Fide Viera RN) Med Hx Hepatitis/Liver Disease: No (01/22/2017 17:23:Fide Viera RN) Med Hx Varicosities/Phlebitis: No (01/22/2017 17:23:Fide Viera RN) Med Hx Thyroid Dysfunction: No (01/22/2017 17:23:Fide Viera RN) Med Hx Trauma/Violence: No (01/22/2017 17:23:Fide Viera RN) Med Hx Blood Transfusion: No (01/22/2017 17:23:Fide Viera RN) Med Hx Pulmonary (Asthma,TB): No (01/22/2017 17:23:Fide Viera RN) Med Hx Breast: No (01/22/2017 17:23:Fide Viera RN) Med Hx MANAGEMENT SME Surgery: No (01/22/2017 17:23:Fide Viera RN) Med Hx Hospitalization/Surgery: Yes (01/22/2017 17:23:Fide Viera RN) Med Hx Anesthetic Complications: No (01/22/2017 17:23:Fide Viera RN) Med Hx Abnormal Pap Smear: No (01/22/2017 17:23:Fide Viera RN) Other Medical Diseases: No (01/22/2017 17:23:Fide Viera RN) Med Hx Significant Family Hx: No (01/22/2017 17:23:Fide Viera RN) Details of Med/Surg Hx: Diabetes: Hypoglycemia Surgeries: Bunion removed l foot, borders removed both feet (01/22/2017 17:23:Fide Viera RN) INFECTIOUS HISTORY Inf Hx Gonorrhea: No (01/22/2017 17:23:Fide Viera RN) Inf Hx Chlamydia: No (01/22/2017 17:23:Fide Viera RN) Inf Hx Syphilis: No (01/22/2017 17:23:Fide Viera RN) Inf Hx HIV/AIDS: No (01/22/2017 17:23:Fide Viera RN) Inf Hx Human Papilloma Virus: No (01/22/2017 17:23:Fide Viera RN) Inf Hx Pt/Partner Genital Herpes: No (01/22/2017 17:23:Fide Viera RN) Inf Hx Tuberculosis/Exposure: No (01/22/2017 17:23:Fide Viera RN) Inf Hx Hepatitis B,C: No (01/22/2017 17:23:Fide Viera RN) Inf Hx Rash or Viral Illness: No (01/22/2017 17:23:Fide Vitrano, RN) GENETIC HISTORY Gen Hx Age >=35 at PRADEEP: No (01/22/2017 17:23:Fide Viera RN) Gen Hx Thalassemia: No (01/22/2017 17:23:Fide Viera RN) Gen Hx Congenital Heart Defect: No (01/22/2017 17:23:Fide Viera RN) Gen Hx Neural Tube Defect: No (01/22/2017 17:23:Fide Viera RN) Gen Hx Down's Syndrome: No (01/22/2017 17:23:Fide Viera RN) Gen Hx Ralph-Sachs: No (01/22/2017 17:23:Fide Viera RN) Gen Hx Brenda: No (01/22/2017 17:23:Fide Viera RN) Gen Hx Familial Dysautonomia: No (01/22/2017 17:23:Fide Viera RN) Gen Hx Sickle Cell Disease/Trait: No (01/22/2017 17:23:Fide Viera RN) Gen Hx Hemophilia/Blood Disorder: No (01/22/2017 17:23:Fide Viera RN) Gen Hx Muscular Dystrophy: No (01/22/2017 17:23:Fide Viera RN) Gen Hx Cystic Fibrosis: No (01/22/2017 17:23:Fide Viera RN) Gen Hx Huntingtons Chorea: No (01/22/2017 17:23:Fide Viera RN) Gen Hx Mental Retardation/Autism: No (01/22/2017 17:23:Fide Viera RN) Gen Hx Tested for Fragile X: No (01/22/2017 17:23:Fide Viera RN) Gen Hx Other Inher/Chromosomal: No (01/22/2017 17:23:Fide Viera RN) Gen Hx Maternal Metabolic DO: No (01/22/2017 17:23:Fide Viera RN) Gen Hx Pt Father or FOB Defect: No (01/22/2017 17:23:Fide Viera RN) Gen Hx Other Genetic History: No (01/22/2017 17:23:Fide Viera RN) Gen Hx Drugs/Meds since LMP: No (01/22/2017 17:23:Fide Viera RN)
--- NOTE | 2017-02-22 10:45 | Antepartum Discharge Summary ---
Antepartum DC Datetime Report Generated by CPN: 02/22/2017 10:45 DIET/ACTIVITY/RESTRICTIONS Diet: Regular (02/20/2017 12:15:Mercedez Bellavance, RNC) Activity: Normal Activity (02/20/2017 12:15:Mercedez Bellavance, RNC) TEACHING/INSTRUCTIONS/REFERRALS Instructions Given To: patient (02/20/2017 12:15:Mercedez Bellavance, RNC) Instructions Understood: Patient Verbalized Understanding; Support Person Verbalized Understanding (02/20/2017 12:15:Mercedez Bellavance, RNC) Referrals: None (02/20/2017 12:15:Mercedez Bellavance, RNC) Educational Materials- Other: kick counts (02/20/2017 12:15:Mercedez Bellavance, RNC) DISCHARGE INFORMATION Discharged AMA: No (02/20/2017 12:15:Mercedez Bellavance, RNC) Discharge Date/Time: 02/20/2017 12:15 (02/20/2017 12:15:Mercedez Bellavance, RNC) Discharged To: Home (02/20/2017 12:15:Mercedez Bellavance, RNC) Discharge Provider Name: neraulen (02/20/2017 12:15:Mercedez Bellavance, RNC) Accompanied By: (02/20/2017 12:15:Mercedez Bellavance, RNC) Discharge Method: Ambulatory (02/20/2017 12:15:Mercedez Bellavance, RNC) Condition: Stable (02/20/2017 12:15:Mercedez Bellavance, RNC) FOLLOW UP INFORMATION Follow Up With: [facility] (02/20/2017 12:15:LUCIA De La Fuente) Follow Up On: As Scheduled (02/20/2017 12:15:LUCIA De La Fuente) Follow Up Phone Number: [facility] - (02/20/2017 12:15:LUCIA De La Fuente)
== END 2017-02-20 12:17 | disposition home or self-care (01) ==
LOC: LC 10:47
PROVIDERS: ATTEND Specialist
PROC: 4A1HXCZ Monitoring of Products of Conception, Cardiac Rate, External Approach (ICD-10-PCS; principal; 2017-02-20)
DX: Z34.93 Encounter for supervision of normal pregnancy, unspecified, third trimester (principal); Z36 Encounter for antenatal screening of mother; Z3A.36 36 weeks gestation of pregnancy
CPT/HCPCS: 59025; 80307; 81001; 84112

== ENCOUNTER 2017-03-02 16:21 | Outpatient (CLI) | payer OTHER, MEDICAID ==
[2017-03-02 16:52] LABS: APPEARANCE,URINE TURBID; BILIRUBIN,URINE NEGATIVE (NEGATIVE); GLUCOSE, URINE NEGATIVE (NEGATIVE); KETONES,URINE NEGATIVE (NEGATIVE); LEUKOCYTE ESTERASE,URINE NEGATIVE (NEGATIVE); NITRITE,URINE NEGATIVE (NEGATIVE); PROTEIN,URINE NEGATIVE (NEGATIVE); URINE SPECIFIC GRAVITY 1.016; UROBILINOGEN,URINE NEGATIVE mg/dL (<2.0)
[2017-03-02 17:07] LABS: URINE BARBITURATES SCREEN NEGATIVE; URINE METHADONE SCREEN NEGATIVE; URINE OPIATES LOW NEGATIVE; URINE PHENCYCLIDINE SCREEN NEGATIVE
== END 2017-03-02 17:22 | disposition home or self-care (01) ==
LOC: LC 16:21
PROVIDERS: ATTEND Obstetrics & Gynecology
PROC: 4A1HXCZ Monitoring of Products of Conception, Cardiac Rate, External Approach (ICD-10-PCS; principal; 2017-03-02)
DX: O47.1 False labor at or after 37 completed weeks of gestation (principal); Z3A.37 37 weeks gestation of pregnancy
CPT/HCPCS: 59025; 80307; 81005

== ENCOUNTER 2017-03-15 19:03 | Outpatient (CLI) | payer OTHER, MEDICAID ==
[2017-03-15 20:10] LABS: APPEARANCE,URINE CLEAR; BILIRUBIN,URINE NEGATIVE (NEGATIVE); GLUCOSE, URINE NEGATIVE (NEGATIVE); KETONES,URINE NEGATIVE (NEGATIVE); LEUKOCYTE ESTERASE,URINE NEGATIVE (NEGATIVE); NITRITE,URINE NEGATIVE (NEGATIVE); PROTEIN,URINE NEGATIVE (NEGATIVE); URINE SPECIFIC GRAVITY 1.006; UROBILINOGEN,URINE NEGATIVE mg/dL (<2.0)
[2017-03-15 20:28] LABS: URINE BARBITURATES SCREEN NEGATIVE; URINE METHADONE SCREEN NEGATIVE; URINE OPIATES LOW NEGATIVE; URINE PHENCYCLIDINE SCREEN NEGATIVE
== END 2017-03-15 20:55 | disposition home or self-care (01) ==
LOC: LC 19:03
PROVIDERS: ATTEND Obstetrics & Gynecology
PROC: 4A1HXCZ Monitoring of Products of Conception, Cardiac Rate, External Approach (ICD-10-PCS; principal; 2017-03-15)
DX: O47.1 False labor at or after 37 completed weeks of gestation (principal); Z3A.39 39 weeks gestation of pregnancy
CPT/HCPCS: 80307; 81005

== ENCOUNTER 2017-03-19 17:25 | Outpatient (CLI) | payer OTHER, MEDICAID ==
--- NOTE | 2017-03-19 17:42 | Non Stress Test Report ---
Non Stress Test Datetime Report Generated by CPN: 03/19/2017 17:42 DEMOGRAPHIC EGA NST: 39.3 EGA NST: 37.4 INDICATION Indication for Study: Other Indication for Study: Other Indication for Study (NST) Other: LC Indication for Study (NST) Other: LC URINE RESULTS Urine Protein, NST: Negative Urine Ketones - NST: Negative Urine Glucose - NST: Negative Urine Blood - NST: Positive MONITORING Monitor Explained: Monitor Explained; Test Explained; Patient Verbalized Understanding Monitor Explained: Monitor Explained; Test Explained; Patient Verbalized Understanding Time on Monitor: 03/15/2017 19:23 Time on Monitor: 03/02/2017 16:39 Time off Monitor: 03/15/2017 19:56 NST Duration: 33 NST INTERVENTIONS NST Interventions: PO Hydration; Reposition Patient NST Interventions: PO Hydration; Reposition Patient Physician Notified NST: H Juan CNM BABY A: [id number] BABY A Movement : Present Movement : Present Contraction Frequency : 1.5-3 Contraction Frequency : Irr FHR Baseline : 125 FHR Baseline : 125 Accelerations : 15X15 Accelerations : 15X15 Decelerations : Early Decelerations : None Variability : Moderate 6-25bpm Variability : Moderate 6-25bpm NST Review: Meets Criteria for Reactive NST NST Review: Meets Criteria for Reactive NST NST Review and Verified By : Luisa Gordillo RN NST Results: Reactive NST Results: Reactive NST REPORT Report Trigger: Send Report
--- NOTE | 2017-03-19 18:18 | Non Stress Test Report ---
Non Stress Test Datetime Report Generated by CPN: 03/19/2017 18:18 DEMOGRAPHIC EGA NST: 40.0 INDICATION Indication for Study: Ordered by Provider MONITORING Monitor Explained: Monitor Explained; Test Explained; Patient Verbalized Understanding Time on Monitor: 03/19/2017 17:42 Time off Monitor: 03/19/2017 18:14 NST Duration: 32 NST INTERVENTIONS NST Interventions: None Physician Notified NST: K. Contreras, CNM BABY A Movement : Present Contraction Frequency : none FHR Baseline : 130 Accelerations : 15X15 Decelerations : None Variability : Moderate 6-25bpm NST Review: Meets Criteria for Reactive NST NST Review and Verified By : Wil Taylor RN NST Results: Reactive NST REPORT Report Trigger: Send Report
== END 2017-03-19 18:15 | disposition home or self-care (01) ==
LOC: LC 17:25
PROVIDERS: ATTEND Obstetrics & Gynecology
DX: Z34.83 Encounter for supervision of other normal pregnancy, third trimester (principal); Z3A.40 40 weeks gestation of pregnancy
CPT/HCPCS: 59025

== ENCOUNTER 2017-03-21 16:55 | Inpatient (IN) | payer OTHER, MEDICAID ==
[2017-03-21 17:37] LABS: APPEARANCE,URINE SLIGHTLY-CLOUDY; BILIRUBIN,URINE NEGATIVE (NEGATIVE); GLUCOSE, URINE NEGATIVE (NEGATIVE); KETONES,URINE NEGATIVE (NEGATIVE); LEUKOCYTE ESTERASE,URINE LARGE (NEGATIVE); NITRITE,URINE NEGATIVE (NEGATIVE); PROTEIN,URINE NEGATIVE (NEGATIVE); URINE SPECIFIC GRAVITY 1.014; UROBILINOGEN,URINE NEGATIVE mg/dL (<2.0)
[2017-03-21 18:02] LABS: URINE BARBITURATES SCREEN NEGATIVE; URINE METHADONE SCREEN NEGATIVE; URINE OPIATES LOW NEGATIVE; URINE PHENCYCLIDINE SCREEN NEGATIVE
[2017-03-21] MEDS ORDERED: RINGERS SOLUTION,LACTATED 1,000 ML IV PRN (18:27)
[2017-03-21 18:53] LABS: ABSOLUTE EOSINOPHILS # (AUTO) 0.4 10^3/uL (0.0-0.6); ABSOLUTE LYMPHOCYTES (AUTO) 2.3 10^3/uL (0.5-4.7); ABSOLUTE MONOCYTES (AUTO) 0.5 10^3/uL (0.1-1.4); ABSOLUTE NEUT (AUTO) 7.1 10^3/uL (1.7-8.2); BASOPHILS % (AUTO) 0.4 % (0-2); EOSINOPHILS % (AUTO) 3.6 % (0-6); HEMATOCRIT 35.2 % (36.0-47.0); HEMOGLOBIN 12.5 g/dL (12.0-15.5); HGB HCT DIFFERENCE 2.3; LYMPHOCYTES % (AUTO) 22.4 % (13-45); MEAN CORPUSCULAR HEMOGLOBIN 31.5 pg (27.0-33.4); MEAN CORPUSCULAR HGB CONC 35.5 g/dL (32.0-36.0); MEAN CORPUSCULAR VOLUME 89 fl (80-97); MONOCYTES % (AUTO) 5.2 % (3-13); RED BLOOD COUNT 3.96 10^6/uL (3.72-5.28); RED CELL DISTRIBUTION WIDTH 13.2 % (11.5-14.0); SEGMENTED NEUTROPHILS % (AUTO) 68.4 % (42-78); WHITE BLOOD COUNT 10.4 10^3/uL (4.0-10.5)
[2017-03-21] MEDS ORDERED: LIDOCAINE 1% INJ-PF (10 MG/ML) 30 ML SDV ONE (19:37)
[2017-03-21] MEDS ORDERED: OXYTOCIN/NORMAL SALINE 20 UNIT/1,000 ML RTUINJ ONE (19:37)
[2017-03-21] MEDS ORDERED: MISOPROSTOL 0.2 MG TABLET ONE (19:37)
[2017-03-21] MEDS ORDERED: EPHEDRINE SULFATE INJ 50 MG/1 ML AMPULE ONE (19:38)
[2017-03-21] MEDS ORDERED: BUPIVACAINE HCL 0.25 % INJ/PF (2.5 MG/1 ML) 30 ML VIAL ONE (19:38)
[2017-03-21] MEDS ORDERED: FENTANYL/BUPIVACAINE/NS/PF 200 MCG/100 ML RTUINJ EPI ONE (19:38)
[2017-03-21] MEDS ORDERED: FENTANYL CITRATE INJ/PF 100 MCG/2 ML AMPUL ONE (19:39)
[2017-03-21] MEDS ORDERED: PHENYLEPHRINE HCL INJ/PF 10 MG/1 ML SDV ONE (19:39)
[2017-03-21] MEDS ORDERED: BENZOCAINE/MENTHOL AEROSOL SPRAY 56 ML TOP PRN (22:20)
[2017-03-21] MEDS ORDERED: OXYTOCIN/NORMAL SALINE 1,000 ML IV PRN (22:20)
[2017-03-21] MEDS ORDERED: DIBUCAINE 1% OINTMENT 28 GM TP PRN (22:20)
[2017-03-21] MEDS ORDERED: ACETAMINOPHEN WITH CODEINE #3 TABLET PO PRN ×2 (22:20)
[2017-03-21] MEDS ORDERED: MEASLES,MUMPS&RUBELLA VACC/PF 0.5 ML VIAL SUBCUT PRN (22:20)
[2017-03-21] MEDS ORDERED: DIPH/PERTUSS(ACELL)/TETANUS VAC/PF 0.5 ML SYR (>=10YO) IM PRN (22:20)
[2017-03-21] MEDS ORDERED: ZOLPIDEM TARTRATE 5 MG TABLET PO PRN (22:20)
--- NOTE | 2017-03-22 00:09 | Delivery Summary ---
Del Sum A-C Datetime Report Generated by CPN: 03/22/2017 00:09 DELIVERY PERSONNEL DELIVERY PERSONNEL: [id number] Delivery Doctor:: Magaly Agrawal MD Labor and Delivery Nurse:: Prachi Houston RNemt i/99 Nurse:: Rosalie Castanon RN Outpatient Physical Therapist/FINAL ASSEMBLER: Cintia Benavidez CNA MATERNAL INFORMATION Delivery Anesthesia: Epidural Medications After Delivery: Pitocin Drip 20 Units/1000ml NSS Estimated Blood Loss (ml): 75 Maternal Complications: None Provider Comments: Pt progressed to C and P. Head delivered OA with compound post hand. Hand grasped and posterior shoulder delivered easily. Body followed. Female with apgars 9 and 9 delivered over intact perineum. Cord clamped and cut. Placenta spont and intact. Mom and baby doing well. LABOR SUMMARY EDC: 03/19/2017 00:00 No. Babies in Womb: 1 Attempted: No Labor Anesthesia: Epidural LABOR INFORMATION Reason for Induction: Not Applicable Onset of Labor: 03/21/2017 19:18 Complete Dilatation: 03/21/2017 22:05 Oxytocin: N/A Group B Beta Strep: negative Antibiotics # of Doses: 0 Steroids Given: None Reason Steroids Not Administered: Not Applicable MEMBRANES Membranes Rupture Method: Artificial Rupture of Membranes: 03/21/2017 21:41 Length of Rupture (hr): 0.47 Amniotic Fluid Color: Bloody Amniotic Fluid Amount: Moderate Amniotic Fluid Odor: Normal STAGES OF LABOR Stage 1 hr: 2 Stage 1 min: 47 Stage 2 hr: 0 Stage 2 min: 4 Stage 3 hr: 0 Stage 3 min: 2 Total Time in Labor hr: 2 Total Time in Labor min: 53 VAGINAL DELIVERY Episiotomy: None Laceration Type: None Sponge Count Correct: N/A CSECTION DELIVERY Primary Indication: N/A Secondary Indication: N/A CSection Incidence: N/A Labor: N/A Elective: N/A CSection Incision: N/A BABY A INFORMATION Delivery Date/Time: 03/21/2017 22:09 Method of Delivery: Vaginal Born in Route : No : N/A Forceps: N/A Vacuum Extraction: N/A Shoulder Dystocia : No PRESENTATION/POSITION BABY A Presentation: Cephalic Cephalic Presentation: Vertex Vertex Position: Occipital Anterior Breech Presentation: N/A PLACENTA INFORMATION BABY A Placenta Delivery Time : 03/21/2017 22:11 Placenta Method of Delivery: Spontaneous Placenta Status: Delivered SCORES BABY A Heart Rate 1 min: >100 bpm Resp Effort 1 min: Good Cry Reflex Irritability 1 min: Cough or Sneeze or Pulls Away Muscle Tone 1 min: Active Motion Color 1 min: Body Pateros, Extremities Blue Resuscitation Effort 1 min: Tactile Stimulation SCORE 1 MIN: 9 Heart Rate 5 min: >100 bpm Resp Effort 5 min: Good Cry Reflex Irritability 5 min: Cough or Sneeze or Pulls Away Muscle Tone 5 min: Active Motion Color 5 min: Body Pateros, Extremities Blue Resuscitation Effort 5 min: Tactile Stimulation SCORE 5 MIN: 9 INFANT INFORMATION BABY A Gestational Age at Delivery: 40.2 Gestational Status: Full Term- 39- 40.6 Weeks Infant Outcome : Liveborn Infant Condition : Stable Infant Sex: Female IDENTIFICATION BABY A Infant Verification Date/Time: 03/21/2017 22:19 ID Band Number: [id number] Mother's Name Verified: Yes Infant RN Verifying Infant: SPhil Costelloir, RN _ O. Moreliawood, RN WEIGHT/LENGTH BABY A Infant Birthweight (gm): 3055 Infant Weight (lb): 6 Infant Weight (oz): 12 Length (in): 19.00 (Annotations: Data stored by CPN on behalf of user) Infant Length (cm): 48.26 CORD INFORMATION BABY A No. Cord Vessels: 3 Nuchal Cord : N/A Nuchal Cord- Other: posterior compound hand Cord Blood Taken: Yes-For Eval (Mom's Blood Type - or O+) Suction: Mouth; Nose ASSESSMENT BABY A Complications: None Physical Findings at Delivery: Within Normal Limits Infant Respirations: Appears Normal Skin to Skin: Yes Skin to Skin Time (min): 30 Professor Of Apologetics/ALS Called : No Infant Care By: Nikunj Castanon RN Transferred To: Remains with Mother BABY B INFORMATION : N/A SIGNATURES Signature: with User ID: [email or web address]
--- NOTE | 2017-03-22 00:18 | Admission Physical ---
Datetime Report Generated by CPN: 03/22/2017 00:17 CURRENT ADMISSION Hx Assessment: The History has been Reviewed and is Current Chief Complaint: Uterine Contractions Admit Plan: Initiate Labor Protocol ALLERGIES Medication Allergies: Yes Medication Allergies: amoxicillin trihydrate (03/19/2017); Sulfa (Sulfonamide Antibiotics) (03/19/2017); Potassium Clavulanate * (03/19/2017) Medication Allergies: amoxicillin trihydrate (03/15/2017); Sulfa (Sulfonamide Antibiotics) (03/15/2017); Potassium Clavulanate * (03/15/2017) Medication Allergies: amoxicillin trihydrate (03/02/2017); Sulfa (Sulfonamide Antibiotics) (03/02/2017); Potassium Clavulanate * (03/02/2017) Medication Allergies: amoxicillin trihydrate (01/22/2017); Sulfa (Sulfonamide Antibiotics) (01/22/2017); Potassium Clavulanate * (01/22/2017) Medication Allergies: amoxicillin trihydrate (12/05/2014); Sulfa (Sulfonamide Antibiotics) (12/05/2014); Potassium Clavulanate * (12/05/2014) Medication Allergies: Amoxicillin Trihydrate (12/05/2014); Sulfa (Sulfonamide Antibiotics) (12/05/2014); Potassium Clavulanate (12/05/2014) Latex: No Latex Allergies Food Allergies: N/A Environmental Allergies: N/A OBSTETRICAL HISTORY EDC: 03/19/2017 00:00 : 3 Para: 2 Term: 2 : 0 SAB: 0 IAB: 0 Ectopic: 0 Livin Cesareans: 0 VBACs: 0 Gestational Diabetes: No Rh Sensitization: No Incompetent Cervix: No JOSE: No Infertility: No ART Treatment: No Uterine Anomaly: No IUGR: No Hx Previous C/S: No Macrosomia: No Hx Loss/Stillborn: No PIH: No Hx : No Placenta Previa/Abruption: No Depression/PP Depression: No PTL/PROM: No Post Hemorrhage: No Obstetrical History Comments: G1: 2012 41.2 baby boy, 8 lb 8 oz G2: 2014 40.1 baby boy G3: Current SEE RECORDS Alcohol: No Marijuana : No Cocaine: No Other Illicit Drugs: No Cigarettes: Never Smoker. 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 Heart Disease: No Hosp/Surgery: Yes Autoimmune Disorder: No Anesthetic Complications: No Kidney Disease: No Abnormal Pap Smear: No Neuro/Epilepsy: No Psychiatric Disorders: No Other Medical Diseases: No Hepatitis/Liver Disease: No Significant Family History: No Varicosities/Phlebitis: No Trauma/Violence : No Thyroid Dysfunction: No Medical History Comments: Diabetes: Hypoglycemia Surgeries: Bunion removed l foot, borders removed both feet INFECTIOUS HISTORY Gonorrhea: No Genital Herpes: No Chlamydia: No Tuberculosis: No Syphilis: No Hepatitis: No HIV/AIDS Exposure: No Rash or Viral Illness: No HPV: No PHYSICAL EXAM General: Normal HEENT: Normal Neurologic: Normal Thyroid: Normal Heart: Normal Lungs: Normal Breast: Normal Back: Normal Abdomen: Normal Genitourinary Exam: Normal Extremities: Normal DTRs: Normal Pelvic Type: Adequate FETUS A EGA: 40.2 Monitoring: External US FHR Category: Category I Presentation: Vertex Admit Comment: term labor-plan epidural, monitor PLANS FOR LABOR AND DELIVERY Labor and Delivery: None Pain Management: Epidural Feeding Preference: Breast Benefit of Breast Feed Discussed: Yes Circumcision: N/A INFORMED CONSENT Signature: with User ID: [email or web address]
[2017-03-22] MEDS: IBUPROFEN 800 MG TABLET PO SCH ×3 (06:17→22:25)
[2017-03-22 07:13] LABS: HEMATOCRIT 32.6 % (36.0-47.0); HEMOGLOBIN 11.3 g/dL (12.0-15.5); HGB HCT DIFFERENCE 1.3; MEAN CORPUSCULAR HEMOGLOBIN 31.5 pg (27.0-33.4); MEAN CORPUSCULAR HGB CONC 34.7 g/dL (32.0-36.0); MEAN CORPUSCULAR VOLUME 91 fl (80-97); RED BLOOD COUNT 3.59 10^6/uL (3.72-5.28); WHITE BLOOD COUNT 10.3 10^3/uL (4.0-10.5)
[2017-03-22] MEDS: SENNOSIDES/DOCUSATE 8.6-50 MG 1 EACH TABLET PO SCH (09:26)
[2017-03-22] MEDS: DOCUSATE SODIUM 100 MG CAPSULE PO SCH ×2 (09:26→18:11)
[2017-03-22] MEDS: FERROUS SULFATE 325 MG TABLET PO SCH ×2 (09:27→18:11)
[2017-03-22] MEDS: PRENATAL VITAMIN W-O CA NO5/FE FUMARATE/FA CAPSULE PO SCH (09:27)
--- NOTE | 2017-03-22 10:13 | PDOC PROGRESS REPORT ---
Subjective-OB Subjective: Post Delivery Day: 26 year old. Denies any needs at this time pt doing well denies pain at this time thrombocytopenia- hold motrin ff@u-1 mild lochia anticipate discharge in AM. Physical Exam (OB) Vital Signs: Temp Pulse Resp BP Pulse Ox 97.9 F 63 16 95/56 L 99 03/22/17 07:39 03/22/17 07:39 03/22/17 07:39 03/22/17 07:39 03/22/17 07:39 Intake & Output 03/21/17 03/22/17 03/23/17 06:59 06:59 06:59 Weight 74.75 kg - Lochia Lochia Amount: Small 10-25 ml Lochia Color: Rubra/Red - Abdomen Description: Tender, Soft Hernia Present: No Fundal Description: Firm, Midline Fundal Height: u/u - u/2 Objective-Diagnostic Laboratory: 03/22/17 06:47 03/21/17 03/21/17 03/21/17 15:00 18:30 18:30 WBC 10.4 RBC 3.96 Hgb 12.5 Hct 35.2 L MCV 89 MCH 31.5 MCHC 35.5 RDW 13.2 Plt Count 179 Seg Neutrophils % 68.4 Lymphocytes % 22.4 Monocytes % 5.2 Eosinophils % 3.6 Basophils % 0.4 Absolute Neutrophils 7.1 Absolute Lymphocytes 2.3 Absolute Monocytes 0.5 Absolute Eosinophils 0.4 Absolute Basophils 0.0 Urine Color YELLOW Urine Appearance SLIGHTLY-CLOUDY Urine pH 7.0 Ur Specific [place] 1.014 Urine Protein NEGATIVE Urine Glucose (UA) NEGATIVE Urine Ketones NEGATIVE Urine Blood SMALL H Urine Nitrite NEGATIVE Ur Leukocyte Esterase LARGE H Blood Type O POSITIVE Antibody Screen NEGATIVE 03/22/17 06:47 WBC 10.3 RBC 3.59 L Hgb 11.3 L Hct 32.6 L MCV 91 MCH 31.5 MCHC 34.7 RDW 13.0 Plt Count 146 L Seg Neutrophils % Lymphocytes % Monocytes % Eosinophils % Basophils % Absolute Neutrophils Absolute Lymphocytes Absolute Monocytes Absolute Eosinophils Absolute Basophils Urine Color Urine Appearance Urine pH Ur Specific [place] Urine Protein Urine Glucose (UA) Urine Ketones Urine Blood Urine Nitrite Ur Leukocyte Esterase Blood Type Antibody Screen
[2017-03-23] MEDS: IBUPROFEN 800 MG TABLET PO SCH (07:01)
[2017-03-23 08:58] VITALS: BP 115/67
[2017-03-23] MEDS: DOCUSATE SODIUM 100 MG CAPSULE PO SCH (09:09)
[2017-03-23] MEDS: PRENATAL VITAMIN W-O CA NO5/FE FUMARATE/FA CAPSULE PO SCH (09:09)
[2017-03-23] MEDS: FERROUS SULFATE 325 MG TABLET PO SCH (09:09)
[2017-03-23] MEDS: SENNOSIDES/DOCUSATE 8.6-50 MG 1 EACH TABLET PO SCH (09:09)
--- NOTE | 2017-03-23 10:05 | PDOC PROGRESS REPORT ---
Subjective-OB Subjective: Post Delivery Day: 2 26 year old. Denies any needs at this time, states lochia is stable, pain well controlled, voiding without difficulty, tolerating diet. Concerned about bruise on left leg where varicosity was Physical Exam (OB) Vital Signs: Temp Pulse Resp BP Pulse Ox 98.7 F 73 18 115/67 99 03/23/17 08:58 03/23/17 08:58 03/23/17 08:58 03/23/17 08:58 03/23/17 08:58 Intake & Output 03/22/17 03/23/17 03/24/17 06:59 06:59 06:59 Weight 74.75 kg - Lochia Lochia Amount: Scant < 10 ml Lochia Color: Rubra/Red - Abdomen Description: Soft, Flat Hernia Present: No Fundal Description: Firm, Midline Fundal Height: u/u - u/2 - Extremities Lower extremities: Other - left leg with superficial thrombophlebitis, assessed with dr. oliva Objective-Diagnostic Laboratory: 03/22/17 06:47 Assessment and Plan(PN) - Assessment and Plan (1) Thrombophlebitis leg Is this a current diagnosis for this admission?: YesPlan: dc home on keflex discussed s/sx of dvt and when to seek care - Time Spent with Patient Time with patient: Less than 15 minutes Critical Time spent with patient: Less than 15 minutes Medications reviewed and adjusted accordingly: Yes - Disposition Anticipated Discharge: Home Within: within 24 hours
--- NOTE | 2017-03-23 10:07 | PDOC DISCHARGE SUMMARY ---
Final Diagnosis Discharge Date: 03/23/17 - Final Diagnosis (1) Thrombophlebitis leg Is this a current diagnosis for this admission?: Yes (2) Delivery normal Is this a current diagnosis for this admission?: Yes Discharge Data - Discharge Medication Home Medications: Pnv No.122/Iron/Folic Acid [ Multi Tablet] 1 tab PO DAILY 03/02/17 Cephalexin Monohydrate [Keflex 500 mg Capsule] 500 mg PO TID #21 capsule Docusate Sodium [Colace 100 mg Capsule] 100 mg PO BID #60 capsule 03/23/17 Ibuprofen [Motrin 800 mg Tablet] 800 mg PO Q8 #60 tablet 03/23/17 Gestational Age: 40.2 Reason(s) for Admission: Onset of Labor, Gestional Diabetes Procedures: NST Intrapartum Procedure(s): Spontaneous Vaginal Delivery - Data Baby 1 Female at 1 minute: 9 at 5 minutes: 9 Weight: 3055 kg Home with Mother: Yes Complications: No - Diagnosis Test Laboratory: Temp Pulse Resp BP Pulse Ox 98.7 F 73 18 115/67 99 03/23/17 10:02 03/23/17 10:02 03/23/17 10:02 03/23/17 10:02 03/23/17 10:02 03/21/17 03/21/17 03/22/17 15:00 18:30 06:47 RBC 3.96 3.59 L Hgb 12.5 11.3 L Hct 35.2 L 32.6 L Urine Opiates Screen NEGATIVE - Discharge information/Instructions Discharge Activity: Activity As Tolerated, Pelvic Rest, No tub bath Discharge Diet: Regular Disposition: HOME, SELF-CARE Follow up with: [facility] in: 4, Weeks
== END 2017-03-23 12:28 | disposition home or self-care (01) | DRG 774 ==
LOC: LC 16:55 → LR 18:46 → 2S 03-22
PROVIDERS: ADMIT Specialist; ATTEND Specialist
PROC: 10E0XZZ Delivery of Products of Conception, External Approach (ICD-10-PCS; principal; 2017-03-21)
PROC: 10907ZC Drainage of Amniotic Fluid, Therapeutic from Products of Conception, Via Natural or Artificial Opening (ICD-10-PCS; 2017-03-21)
DX: O24.12 Pre-existing type 2 diabetes mellitus, in childbirth (principal); O87.0 Superficial thrombophlebitis in the puerperium; E11.9 Type 2 diabetes mellitus without complications; O32.6XX0 Maternal care for compound presentation, not applicable or unspecified; Z37.0 Single live birth; Z3A.40 40 weeks gestation of pregnancy; Z79.4 Long term (current) use of insulin
CPT/HCPCS: 36415; 80307; 81005; 85025; 85027; 86592; 86850; 86900; 86901; J2370; J2590; J3010; J3490